=== PATIENT | male | born 1950 | race Caucasian/White ===

== ENCOUNTER 2018-08-29 01:39 | Emergency (ER) | payer SELFPAY ==
[2018-08-29 01:53] VITALS: BP 189/135
[2018-08-29] MEDS ORDERED: Lidocaine 2% Jelly 10 ML Urojet MUCMEM ONE (02:27)
--- NOTE | 2018-08-29 03:36 | EDM.PDOC ---
ED HPI GENERAL MEDICAL PROBLEM - General Chief Complaint: Genitourinary Problem Stated Complaint: SHORT OF BREATH BLOOD IN URINE Time Seen by Provider: 08/29/18 02:01 Source of Information: Reports: Patient, RN Notes Reviewed - History of Present Illness INITIAL COMMENTS - FREE TEXT/NARRATIVE: 67-year-old male comes in with bladder spasms, urinary retention. He states he had a Ortiz catheter placed at the emergency department at [facility] this last Sunday less than 2 days ago. He was being evaluated therefore shortness of breath, congestive heart failure. He states he was voiding okay but "it was determined he needed a urinary catheter. He states the insertion of the catheter was extremely painful and there was immediate bloody type drainage from the catheter. Hospital admission was suggested for his congestive heart failure but he states he was unable to go into the hospital at that time due to family concerns and it is my understanding that he signed out AMA. He states that since leaving the emergency department there has been continued bloody type drainage into the leg bag. However during the night the drainage has stopped and now he feels like his bladder is getting full and developing quite severe bladder discomfort. He does take aspirin at least some of the time. He is not on other blood thinners at this time. Lower Abdomen Pain Score (Numeric/FACES): 10 - Related Data Allergies Allergy/AdvReac Type Severity Reaction Status Date / Time Penicillins Allergy Cannot Verified 08/29/18 01:54 Remember Home Meds: Home Meds . 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 Genitourinary History: Reports: BPH, Prostate Disorder, Other (See Below) Social & Family History - Family History Family Medical History: Noncontributory - Tobacco Use Smoking Status *Q: Current Every Day Smoker Years of Tobacco use: 56 Packs/Tins Daily: 1 - Caffeine Use Caffeine Use: Reports: Coffee - Recreational Drug Use Recreational Drug Use: No - Living Situation & Occupation Living situation: Reports: Occupation: Employed ED ROS GENERAL - Review of Systems Review Of Systems: See Below Constitutional: Denies: Fever, Chills HEENT: Reports: No Symptoms Respiratory: Reports: Shortness of Breath (Chronically, not worse than usual) Cardiovascular: Denies: Chest Pain GI/Abdominal: Reports: Abdominal Pain (Lower abdominal and pelvic over the bladder region). Denies: Nausea, Vomiting : Reports: Hematuria, Urinary Retention Skin: Reports: No Symptoms Neurological: Reports: No Symptoms ED EXAM, RENAL/ - Physical Exam Exam: See Below General Appearance: Alert, Moderate Distress Throat/Mouth: Normal Inspection Head: Atraumatic Neck: Supple Respiratory/Chest: Respiratory Distress (Mild tachypnea) Cardiovascular: Tachycardia GI/Abdominal: Tender (There is distention and tenderness of the lower mid abdomen and pelvis) (Male) Exam: Other (Result Ortiz catheter in place with red colored urine in the leg bag) Extremities: Normal Range of Motion Neurological: Alert, Oriented, No Motor/Sensory Deficits Skin Exam: Warm, Dry, Normal Color Course - Vital Signs Last Recorded V/S: Last Vital Signs Temp 98.1 F 08/29/18 01:48 Pulse 116 H 08/29/18 01:48 Resp 20 08/29/18 01:48 BP 189/135 H 08/29/18 01:48 Pulse Ox 96 08/29/18 01:48 - Orders/Labs/Meds Meds: Medications Discontinued Medications Generic Name Dose Route Start Last Admin Trade Name Freq PRN Reason Stop Dose Admin Lidocaine HCl 10 ml 08/29/18 02:27 08/29/18 03:40 Xylocaine 2% Jelly MUCMEM 08/29/18 02:28 Not Given ONETIME ONE - Re-Assessments/Exams Free Text/Narrative Re-Assessment/Exam: 08/29/18 03:52 I was informed by his nurse that bladder scan shows about 800 mils of urine in the bladder. I did advise her to go ahead and try irrigate the catheter. Was able to get some fluid in her now but he continued to have blockage in terms of not draining the bladder as expected. I then did advise her to go ahead and take the catheter out. Did remove the catheter he started having gross bloody drainage from the urethra. Continued for about 5-10 minutes and then did stop. This time I did strongly advise that we would need to be transferring him to [place], that there is injury to his urethra or prostate and it would be safer to have a urologist reinsert a Ortiz catheter. Patient was quite strongly opposed to that. He then did void a large clot in the room. Did give him a chance to see if he was going to be able to start voiding again as he states he was "voiding okay prior to catheter insertion. About 5 minutes later he informed me that he had voided quite a lot and the urine was "totally clear," and he's ready to go home. When asked where he lives he [place] of [place], between [place] and [place]. He agrees that if he does have further difficulty voiding he will go to one of the [facility] EDs where Urology services will be available if needed. Discharge instructions as documented. Departure - Departure Time of Disposition: 03:32 Disposition: Home, Self-Care 01 Condition: Fair Clinical Impression: Urinary retention Hematuria Qualifiers: Hematuria type: gross Qualified Code(s): R31.0 - Gross hematuria - Discharge Information Instructions: Acute Urinary Retention, Male, Hematuria, Adult Referrals: Karen Sanchez [employer] [Primary Care Provider] - Forms: ED Department Discharge Additional Instructions: Drink plenty of water to maintain hydration, if you do have further difficulty, unable to void or empty your bladder I strongly suggest you go back to one of the [facility] emergency departments. We do not have a Urology available here in [place] if Urology consultation would be necessary. You are very welcome to return to this ED for any other type of Emergency Problem as needed or if it does not work out for you to get to [facility]. Follow up with a Urologist and with a Super[facility] as previously recomended.
== END 2018-08-29 03:48 | disposition home or self-care (01) ==
LOC: JD.ED 01:39
DX: R33.9 Retention of urine, unspecified (principal); R31.0 Gross hematuria; F17.210 Nicotine dependence, cigarettes, uncomplicated; I11.0 Hypertensive heart disease with heart failure; I50.9 Heart failure, unspecified; Z88.0 Allergy status to penicillin
CPT/HCPCS: 99283

== ENCOUNTER 2020-09-06 15:06 | Emergency (ER) | payer SELFPAY ==
[2020-09-06] MEDS ORDERED: Sodium Chloride 0.9% 10 ML Syringe FLUSH PRN (15:27)
[2020-09-06] MEDS ORDERED: Sodium Chloride 0.9% 500 ML IV SCH (15:30)
--- NOTE | 2020-09-06 15:39 | EDM.PDOC ---
ED HPI GENERAL MEDICAL PROBLEM - General Chief Complaint: General Stated Complaint: POSS STROKE Time Seen by Provider: 09/06/20 15:26 Source of Information: Reports: Patient, Family History Limitations: Reports: No Limitations - History of Present Illness INITIAL COMMENTS - FREE TEXT/NARRATIVE: Patient presents with right lower and upper extremity weakness onset of about 2:00. Last time known well was about 2pm he took a nap and when he woke up he could not move his right arm or right leg. No slurred speech no headache no chest pain no palpitations no double vision blurry vision or blackout spots no balance problems except he cannot walk, no fevers chills or sweats no sore throat or runny nose no coughing or cold symptoms no nausea vomiting abdominal pain no urinary symptoms no edema noted. No history of stroke in the past. - Related Data Allergies Allergy/AdvReac Type Severity Reaction Status Date / Time Penicillins Allergy Cannot Verified 08/29/18 01:54 Remember Home Meds: Home Meds . [No Known Home Meds] 08/29/18 [History] Past Medical History Cardiovascular History: Reports: Hypertension, NV Other Cardiovascular History: Patient states he has had seven NV's. Genitourinary History: Reports: BPH, Prostate Disorder, Other (See Below) Social & Family History - Family History Family Medical History: No Pertinent Family History - Caffeine Use Caffeine Use: Reports: Coffee - Living Situation & Occupation Living situation: Reports: Occupation: Employed ED ROS GENERAL - Review of Systems Review Of Systems: See Below Constitutional: Reports: Diaphoresis. Denies: Fever, Chills HEENT: Denies: Eye Discharge, Vision Change Respiratory: Denies: Shortness of Breath, Cough Cardiovascular: Denies: Chest Pain, Lightheadedness, Palpitations GI/Abdominal: Denies: Abdominal Pain, Diarrhea, Nausea, Vomiting : Denies: Dysuria Musculoskeletal: Denies: Neck Pain, Back Pain, Leg Pain, Muscle Pain Skin: Reports: No Symptoms Neurological: Reports: Headache, Numbness, Paresthesia, Tingling, Difficulty Walking, Weakness, Gait Disturbance. Denies: Confusion, Dizziness, Pre-Existing Deficit, Seizure, Syncope, Trouble Speaking Psychiatric: Reports: No Symptoms ED EXAM, NEURO - Physical Exam Exam: See Below Exam Limited By: No Limitations General Appearance: Alert, WD/WN, No Apparent Distress, Other (No gross visual field deficit) Eye Exam: Right Eye: Foreign Body, Bilateral Eye: EOMI, PERRL Ears: No: Hearing Loss Throat/Mouth: Normal Oropharynx Head Exam: Atraumatic Neck: Supple Respiratory/Chest: No Respiratory Distress, Lungs Clear, Normal Breath Sounds Cardiovascular: Normal Peripheral Pulses, Regular Rate, Rhythm, No Edema GI/Abdominal: Normal Bowel Sounds, Soft, Non-Tender Neurological: Alert, Normal Mood/Affect, CN II-XII Intact, Oriented x 3. No: Normal Gait, No Motor/Sensory Deficits, Abnormal Finger to Nose Extremities: Normal Inspection Psychiatric: Normal Affect Skin Exam: Warm, Dry ED NEURO PROCEDURES - Additional/Other Procedure(s) Other (Free Text) Procedure(s): Critical care time Stroke code, right-sided weakness spent time with reexamination NIH stroke scale activating stroke code, noncontrast CT scan discussion with radiology, will consider TPA, monitoring of blood pressure pulse respiratory rate lab evaluation EKG Spent at the bedside talking with patient consultants and everything else was approximately 45 minutes #1 Interpretation EKG Date: 09/06/20 Time: 15:43 Rhythm: Other EKG Interpretation Comments: I reviewed EKG showing sinus tachycardia rate of 115 LA 142 QRS is 92 QT corrected 502 mild prolongation of the QT interval LVH with repolarization abnormality PVC with bigeminy noted. Course - Vital Signs Text/Narrative:: Concerning for acute stroke with right-sided deficit upper and lower extremities no facial weakness or facial muscle changes NIH stroke scale on initial evaluation is 9. Await CT scan consideration for TPA. SPECT large vessel occlusion we will send him back for a CT angiogram of the head and neck. Last Recorded V/S: Last Vital Signs Temp 97 F 09/06/20 15:28 Pulse 94 09/06/20 15:42 Resp 16 09/06/20 15:28 BP 245/222 H 09/06/20 15:42 Pulse Ox 97 09/06/20 15:28 - Orders/Labs/Meds Orders: Active Orders 24 hr Category Date Time Status Assess Neurological Status [RC] CONTINUOUS Care 09/06/20 15:27 Active Blood Glucose Check, Bedside [RC] STAT Care 09/06/20 15:27 Active Cardiac Monitoring [RC] CONTINUOUS Care 09/06/20 15:27 Active Communication Order [RC] STAT Care 09/06/20 15:27 Active EKG Documentation Completion [RC] ASDIRECTED Care 09/06/20 15:27 Active Height and Weight [RC] UPON Care 09/06/20 15:27 Active NIH Stroke Scale [RC] Q15M Care 09/06/20 15:27 Active NIH Stroke Scale [RC] STAT Care 09/06/20 15:27 Active Nursing Bedside Swallow Screen [RC] STAT Care 09/06/20 15:27 Active Oxygen Therapy, ED [RC] ASDIRECTED Care 09/06/20 15:27 Active Peripheral IV Care [RC] . DIRECTED Care 09/06/20 15:27 Active Vital Signs [RC] Q15M Care 09/06/20 15:27 Active CORONAVIRUS COVID-19 ERIC [MOLEC] Stat Lab 09/06/20 15:53 Received Sodium Chloride 0.9% [Normal Saline] 100 ml Med 09/06/20 16:45 Active IV ASDIRECTED Sodium Chloride 0.9% [Normal Saline] 500 ml Med 09/06/20 15:30 Active IV BOLUS Sodium Chloride 0.9% [Saline Flush] Med 09/06/20 15:27 Active 10 ml FLUSH ASDIRECTED PRN niCARdipine HCl [Nicardipine HCl] 25 mg Med 09/06/20 16:00 Active Sodium Chloride 0.9% [Normal Saline] 250 ml IV TITRATE Peripheral IV Insertion Adult [OM.PC] Stat Oth 09/06/20 15:27 Ordered Peripheral IV Insertion Adult [OM.PC] Stat Oth 09/06/20 15:27 Ordered Resuscitation Status Stat Resus Stat 09/06/20 15:27 Ordered EKG 12 Lead [EK] Stat Ther 09/06/20 15:27 Ordered Medication Orders Sodium Chloride (Normal Saline) 500 mls @ 250 mls/hr IV BOLUS MEDINA Last Admin: 09/06/20 15:51 Dose: 250 mls/hr Documented by: TORRI Nicardipine HCl 25 mg/ Sodium (Chloride) 260 mls @ 52 mls/hr IV TITRATE MEDINA; Protocol Last Admin: 09/06/20 16:00 Dose: 5 mg/hr, 52 mls/hr Documented by: TORRI Sodium Chloride (Normal Saline) 100 mls @ 60 mls/hr IV ASDIRECTED MEDINA Last Admin: 09/06/20 16:31 Dose: 60 mls/hr Documented by: KELLMIT Sodium Chloride (Sodium Chloride 0.9% 10 Ml Syringe) 10 ml FLUSH ASDIRECTED PRN PRN Reason: Keep Vein Open Last Admin: 09/06/20 15:51 Dose: 10 ml Documented by: TORRI Labs: Laboratory Tests 09/06/20 09/06/20 09/06/20 Range/Units 15:28 15:28 15:28 WBC 14.00 H (4.23-9.07) K/mm3 RBC 6.66 H (4.63-6.08) M/mm3 Hgb 17.8 H (13.7-17.5) gm/dl Hct 52.2 H (40.1-51.0) % MCV 78.4 L D (79.0-92.2) fl MCH 26.7 (25.7-32.2) pg MCHC 34.1 (32.2-35.5) g/dl RDW Std Deviation 43.3 (35.1-43.9) fL Plt Count 334 (163-337) K/mm3 MPV 9.5 (9.4-12.3) fl Neut % (Auto) 70.1 H (34.0-67.9) % Lymph % (Auto) 20.8 L (21.8-53.1) % Maury % (Auto) 7.0 (5.3-12.2) % Eos % (Auto) 1.4 (0.8-7.0) Baso % (Auto) 0.5 (0.1-1.2) % Neut # (Auto) 9.81 H (1.78-5.38) K/mm3 Lymph # (Auto) 2.91 (1.32-3.57) K/mm3 Maury # (Auto) 0.98 H (0.30-0.82) K/mm3 Eos # (Auto) 0.20 (0.04-0.54) K/mm3 Baso # (Auto) 0.07 (0.01-0.08) K/mm3 Manual Slide Review Abnormal smear PT 10.9 (9.7-12.0) SECONDS INR 1.02 APTT 31.2 (21.7-31.4) SECONDS Sodium 143 (136-145) mEq/L Potassium 4.0 (3.5-5.1) mEq/L Chloride 105 (98-107) mEq/L Carbon Dioxide 25 (21-32) mEq/L Anion Gap 17.0 H (5-15) BUN 14 (7-18) mg/dL Creatinine 1.2 (0.7-1.3) mg/dL Est Cr Clr Drug Dosing 59.14 mL/min Estimated GFR (MDRD) 60 (>60) mL/min BUN/Creatinine Ratio 11.7 L (14-18) Glucose 110 H (70-99) mg/dL POC Glucose (70-99) mg/dL Calcium 9.3 (8.5-10.1) mg/dL Total Bilirubin 0.5 (0.2-1.0) mg/dL AST 14 L (15-37) U/L ALT 18 (16-63) U/L Alkaline Phosphatase 92 (46-116) U/L Troponin I 0.019 (0.00-0.056) ng/mL Total Protein 8.6 H (6.4-8.2) g/dl Albumin 4.2 (3.4-5.0) g/dl Globulin 4.4 gm/dL Albumin/Globulin Ratio 1.0 (1-2) 09/06/20 Range/Units 15:30 WBC (4.23-9.07) K/mm3 RBC (4.63-6.08) M/mm3 Hgb (13.7-17.5) gm/dl Hct (40.1-51.0) % MCV (79.0-92.2) fl MCH (25.7-32.2) pg MCHC (32.2-35.5) g/dl RDW Std Deviation (35.1-43.9) fL Plt Count (163-337) K/mm3 MPV (9.4-12.3) fl Neut % (Auto) (34.0-67.9) % Lymph % (Auto) (21.8-53.1) % Maury % (Auto) (5.3-12.2) % Eos % (Auto) (0.8-7.0) Baso % (Auto) (0.1-1.2) % Neut # (Auto) (1.78-5.38) K/mm3 Lymph # (Auto) (1.32-3.57) K/mm3 Maury # (Auto) (0.30-0.82) K/mm3 Eos # (Auto) (0.04-0.54) K/mm3 Baso # (Auto) (0.01-0.08) K/mm3 Manual Slide Review PT (9.7-12.0) SECONDS INR APTT (21.7-31.4) SECONDS Sodium (136-145) mEq/L Potassium (3.5-5.1) mEq/L Chloride (98-107) mEq/L Carbon Dioxide (21-32) mEq/L Anion Gap (5-15) BUN (7-18) mg/dL Creatinine (0.7-1.3) mg/dL Est Cr Clr Drug Dosing mL/min Estimated GFR (MDRD) (>60) mL/min BUN/Creatinine Ratio (14-18) Glucose (70-99) mg/dL POC Glucose 120 H (70-99) mg/dL Calcium (8.5-10.1) mg/dL Total Bilirubin (0.2-1.0) mg/dL AST (15-37) U/L ALT (16-63) U/L Alkaline Phosphatase (46-116) U/L Troponin I (0.00-0.056) ng/mL Total Protein (6.4-8.2) g/dl Albumin (3.4-5.0) g/dl Globulin gm/dL Albumin/Globulin Ratio (1-2) Meds: Medications Generic Name Dose Route Start Last Admin Trade Name Freq PRN Reason Stop Dose Admin Sodium Chloride 500 mls @ 250 mls/hr 09/06/20 15:30 09/06/20 15:51 Normal Saline IV 250 mls/hr BOLUS MEDINA Administration Nicardipine HCl 25 mg/ Sodium 260 mls @ 52 mls/hr 09/06/20 16:00 09/06/20 16:00 Chloride IV 5 mg/hr TITRATE MEDINA 52 mls/hr Administration Protocol 5 MG/HR Sodium Chloride 100 mls @ 60 mls/hr 09/06/20 16:45 09/06/20 16:31 Normal Saline IV 60 mls/hr ASDIRECTED MEDINA Administration Sodium Chloride 10 ml 09/06/20 15:27 09/06/20 15:51 Sodium Chloride 0.9% 10 Ml Syringe FLUSH 10 ml ASDIRECTED PRN Administration Keep Vein Open Discontinued Medications Generic Name Dose Route Start Last Admin Trade Name Freq PRN Reason Stop Dose Admin Iopamidol 100 ml 09/06/20 16:31 09/06/20 16:31 Iopamidol 755 Mg/Ml 100 Ml Bottle IVPUSH 09/06/20 16:32 100 ml ONETIME ONE Administration Labetalol HCl 20 mg 09/06/20 15:44 09/06/20 15:51 Labetalol 100 Mg/20 Ml Mdv IVPUSH 09/06/20 15:45 20 mg ONETIME ONE Administration Protocol Sodium Chloride 10 ml 09/06/20 16:31 09/06/20 16:31 Sodium Chloride 0.9% 10 Ml Syringe FLUSH 09/06/20 16:32 10 ml ONETIME ONE Administration - Radiology Interpretation Free Text/Narrative:: CT noncontrast head CT is negative reviewed with radiologist. - Re-Assessments/Exams Free Text/Narrative Re-Assessment/Exam: 09/06/20 16:10 Started patient on a dose of 20 mg labetalol and started him on a Cardene drip. I did make a phone call to 1 call at [facility] in [place] and they have no ICU beds. I placed a call also then to 1 called [facility] in [place] and left a message as they were busy at the time of my phone call [facility] is here to potentially take the patient to a higher level of care however we do not have an accepting facility yet. I spent a long time talking with the patient family members at the bedside regarding concern for consideration of TPA and it is contraindicated with his high blood pressure but that he still may benefit from interventional radiology thrombectomy but will still need to get his blood pressure under control. We will see if we can get a CT angiogram of the head and neck to better delineate the lesion and/or to see if it may be somewhat a hypertensive emergency. Patient is still hesitant to want a fly based on financial reasons and no insurance and having just finished paying off a $70,000 Dr. Mahajan. 09/06/20 16:57 I was able to get a hold of the neurologist at [facility] and recommended patient be transferred for further evaluation CT angiogram head and neck rule out large vessel occlusion and management of his hypertensive emerge ncy. I discussed the case with Dr. Brown the emergency department physician on- call and accepted patient for admission and evaluation. Patient transferred by [facility] his last blood pressure prior to leaving was 195/167. Alert and oriented, still having deficit to the right upper and right lower extremity. Departure - Departure Clinical Impression: Acute stroke due to ischemia - Discharge Information Referrals: Karen Collado MD [Primary Care Provider] - Forms: ED Department Discharge Sepsis Event Note (ED) - Focused Exam Vital Signs: Vital Signs Temp Pulse Resp BP Pulse Ox 09/06/20 15:42 94 245/222 H 09/06/20 15:28 97 F 110 H 16 245/171 H 97 09/06/20 15:27 118 H 20 260/214 H 97 - My Orders Last 24 Hours: My Active Orders 09/06/20 15:27 Assess Neurological Status [RC] CONTINUOUS Blood Glucose Check, Bedside [RC] STAT Cardiac Monitoring [RC] CONTINUOUS Communication Order [RC] STAT EKG Documentation Completion [RC] ASDIRECTED Height and Weight [RC] UPON NIH Stroke Scale [RC] Q15M NIH Stroke Scale [RC] STAT Nursing Bedside Swallow Screen [RC] STAT Oxygen Therapy, ED [RC] ASDIRECTED Peripheral IV Care [RC] . DIRECTED Vital Signs [RC] Q15M Sodium Chloride 0.9% [Saline Flush] 10 ml FLUSH ASDIRECTED PRN Peripheral IV Insertion Adult [OM.PC] Stat Peripheral IV Insertion Adult [OM.PC] Stat Resuscitation Status Stat EKG 12 Lead [EK] Stat 09/06/20 15:30 Sodium Chloride 0.9% [Normal Saline] 500 ml IV BOLUS 09/06/20 15:53 CORONAVIRUS COVID-19 ERIC [MOLEC] Stat 09/06/20 16:00 niCARdipine HCl [Nicardipine HCl] 25 mg Sodium Chloride 0.9% [Normal Saline] 250 ml IV TITRATE 09/06/20 16:45 Sodium Chloride 0.9% [Normal Saline] 100 ml IV ASDIRECTED - Assessment/Plan Last 24 Hours: My Active Orders 09/06/20 15:27 Assess Neurological Status [RC] CONTINUOUS Blood Glucose Check, Bedside [RC] STAT Cardiac Monitoring [RC] CONTINUOUS Communication Order [RC] STAT EKG Documentation Completion [RC] ASDIRECTED Height and Weight [RC] UPON NIH Stroke Scale [RC] Q15M NIH Stroke Scale [RC] STAT Nursing Bedside Swallow Screen [RC] STAT Oxygen Therapy, ED [RC] ASDIRECTED Peripheral IV Care [RC] . DIRECTED Vital Signs [RC] Q15M Sodium Chloride 0.9% [Saline Flush] 10 ml FLUSH ASDIRECTED PRN Peripheral IV Insertion Adult [OM.PC] Stat Peripheral IV Insertion Adult [OM.PC] Stat Resuscitation Status Stat EKG 12 Lead [EK] Stat 09/06/20 15:30 Sodium Chloride 0.9% [Normal Saline] 500 ml IV BOLUS 09/06/20 15:53 CORONAVIRUS COVID-19 ERIC [MOLEC] Stat 09/06/20 16:00 niCARdipine HCl [Nicardipine HCl] 25 mg Sodium Chloride 0.9% [Normal Saline] 250 ml IV TITRATE 09/06/20 16:45 Sodium Chloride 0.9% [Normal Saline] 100 ml IV ASDIRECTED
[2020-09-06] MEDS ORDERED: Labetalol 100 MG/20 ML MDV IVPUSH ONE (15:44)
--- NOTE | 2020-09-06 15:52 | CT ---
Head CT Technique: Multiple axial sections through the brain were obtained. Intravenous contrast was not utilized. Reconstructed coronal and sagittal images were obtained. Comparison: No prior intracranial imaging is available. Findings: Ventricles along with basal cisterns and sulci over the convexities are within normal limits for the patient's age. No abnormal parenchymal densities are seen. No evidence of intracranial hemorrhage. No midline shift or mass-effect is seen. Bone window settings were reviewed. Slight mucosal thickening is seen within the ethmoid sinuses which is likely chronic. Nothing acute is appreciated within the visualized mastoid or other paranasal sinuses. No acute calvarial abnormality is appreciated. Impression: 1. Slight paranasal sinus findings which are believed to be chronic. 2. Nothing acute is appreciated on noncontrast head CT exam. Note: If patient's symptoms warrant further evaluation, MRI study is then recommended. Diagnostic code #2
[2020-09-06 15:54] VITALS: BP 245/222; PULSE 94
[2020-09-06] MEDS ORDERED: niCARdipine HCl 25 MG in Sodium Chloride 0.9% 250 ML IV SCH (16:00)
[2020-09-06] MEDS ORDERED: Iopamidol 755 Mg/ML 100 ML Bottle IVPUSH ONE (16:31)
[2020-09-06] MEDS ORDERED: Sodium Chloride 0.9% 10 ML Syringe FLUSH ONE (16:31)
[2020-09-06] MEDS ORDERED: Sodium Chloride 0.9% 100 ML IV SCH (16:45)
--- NOTE | 2020-09-06 16:52 | CT ---
CT angiogram of neck Technique: Multiple axial sections through the neck were obtained without and with intravenous contrast. Reconstructed MIP images were obtained of both sides. Comparison: No prior neck imaging is available. Findings: Calcified plaque is noted within the right carotid bulb causing mild atheromatous irregularity. Both common carotid arteries appear to be patent. Both internal carotid arteries also appear to be patent with no dissection. Proximal external carotid arteries are patent with no dissection. Both vertebral arteries show no focal stenosis with no dissection. Impression: 1. Calcified plaque within the right carotid bulb causing mild atheromatous irregularity. 2. No focal stenosis or dissection is seen within the common carotid, external carotid, internal carotid or vertebral arteries. Diagnostic code #2
--- NOTE | 2020-09-06 16:53 | CT ---
CT angiogram of brain Technique: Multiple axial sections were obtained through the brain. Study was obtained with intravenous contrast during arterial phase. Comparison: No previous study. Findings: Both distal vertebral arteries are patent into the anterior and middle cerebral arteries. Perfusion seems to be symmetric between right and left sides. Both vertebral arteries are patent into the basilar artery. Basilar artery is patent into the posterior cerebral arteries. Intracranial arteries show no focal stenosis or occlusion is seen. No discrete aneurysm is seen. Impression: 1. No abnormality is appreciated on CT study of the brain. Diagnostic code #1
== END 2020-09-06 16:45 ==
LOC: JD.ED 15:06
DX: I63.9 Cerebral infarction, unspecified (principal); I67.82 Cerebral ischemia; I10 Essential (primary) hypertension; I25.2 Old myocardial infarction; Z88.0 Allergy status to penicillin
CPT/HCPCS: 36415; 70450; 70496; 70498; 80053; 82947; 84484; 85025; 85610; 85730; 87635; 93005; 96365; 96375; 99285; J3490; J7040; J7050; Q9967; 93010; 99291; U0002